=== PATIENT | male | born 1990 | race Two or more races ===

== ENCOUNTER 2021-03-29 00:21 | Emergency (ER) | payer SELFPAY ==
[~2021-03-29] VITALS: Ht 162.6 cm; Wt 63.3 kg
[2021-03-29] MEDS ORDERED: TRAM-48 PO (01:41)
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
[2021-03-29] MEDS: traMADol 50 MG TABLET PO ONE (01:59)
--- NOTE | 2021-03-29 02:22 | RAD ---
EXAM: LEFT ANKLE 3 VIEWS. HISTORY: Pain after injury. COMPARISON: None. FINDINGS: Three views of the left ankle are obtained. There is soft tissue swelling medially greater than laterally. No fractures are identified. Alignment is normal. Joint spaces are maintained. IMPRESSION: 1. Soft tissue swelling. No fracture. Electronically signed by: Carole Lim MD (03/29/2021 2:19 AM) [facility]
[2021-03-29 02:55] VITALS: BP 105/58
== END 2021-03-30 02:57 | disposition home or self-care (01) ==
LOC: ER 00:21
DX: S93.402A Sprain of unspecified ligament of left ankle, initial encounter (principal); S50.12XA Contusion of left forearm, initial encounter; W23.0XXA Caught, crushed, jammed, or pinched between moving objects, initial encounter; Y93.89 Activity, other specified; Y92.89 Other specified places as the place of occurrence of the external cause; Y99.8 Other external cause status
CPT/HCPCS: 73610; 99283; 99285-25